=== PATIENT | male | born 1955 | race Caucasian/White ===

== ENCOUNTER 2023-11-11 15:20 | Outpatient (CLI) | payer MEDICARE ==
[2023-11-11 16:00] LABS: #Basophils 0.1 10x3/uL (0.0-0.2); #Eosinphils 0.1 10x3/uL (0.0-0.5); #Monocytes 0.7 10x3/uL (0.0-1.1); #Neutrophils 2.4 10x3/uL (1.5-8.4); %Basophils 0.9 % (0.0-2.0); %Eosinophils 1.8 % (0.0-6.0); %Lymphocytes 41.1 % (18.0-47.0); %Monocytes 12.4 % (0.0-10.0); %Neutrophils 43.6 % (40.0-75.0); Hematocrit 47.9 % (38.8-50.0); Hemoglobin 16.3 g/dL (13.5-17.5); Mean Corpuscular Hemoglobin 31.5 pg (27.0-33.0); Mean Corpuscular Volume 92.5 fl (81.2-95.1); Mean Platelet Volume 10.2 fl (7.4-10.4); Platelet Count 281 10x3/uL (150-450); Red Blood Cell (RBC) Count 5.18 10x6/uL (4.32-5.72); White Blood Cell (WBC) Count 5.5 10x3/uL (3.5-10.5)
[2023-11-11 16:18] LABS: ALT (SGPT) 21 U/L (8-55); AST (SGOT) 23 U/L (5-34); Albumin 4.5 g/dL (3.4-4.8); Alkaline Phosphatase 68 U/L (40-110); Anion Gap 15 mmol/L (10-20); BUN (Urea Nitrogen) 16 mg/dL (8.4-25.7); Bilirubin, Total 0.7 mg/dL (0.2-1.2); Calc. Creatinine Clearance 0 mL/min (70-130); Calcium 9.7 mg/dL (7.8-10.44); Carbon Dioxide 26 mmol/L (23-31); Chloride 102 mmol/L (98-107); Estimated GFR 92; Globulin 2.8 g/dL (2.4-3.5); Glucose 106 mg/dL (80-115); Potassium 4.2 mmol/L (3.5-5.1); Protein, Total 7.3 g/dL (5.8-8.1); Sodium 139 mmol/L (136-145)
== END 2023-11-11 15:21 | disposition home or self-care (01) ==
LOC: LABBT 15:20
PROVIDERS: ATTEND Surgery
DX: Z01.818 Encounter for other preprocedural examination (principal); K40.90 Unilateral inguinal hernia, without obstruction or gangrene, not specified as recurrent
CPT/HCPCS: 80053; 85025; 93005; 93010

== ENCOUNTER 2023-11-12 10:22 | Day surgery (SDC) | payer OTHER, MEDICARE ==
[2023-11-11 15:42] VITALS: BMI 29.8
[2023-11-12] MEDS ORDERED: Scopolamine 1 mg/72 hour Patch ONE (12:02)
[2023-11-12] MEDS ORDERED: Famotidine/PF 20 mg/2ml Vial ONE (12:03)
[2023-11-12] MEDS ORDERED: PROPOFOL 20 ML ONE (12:22)
[2023-11-12] MEDS ORDERED: fentaNYL PF 100 MCG/2 ML SYRINGE ONE (12:22)
[2023-11-12] MEDS ORDERED: Lidocaine 1% PF 5 ML VIAL ONE ×2 (12:25→12:43)
[2023-11-12] MEDS ORDERED: Bupivacaine 0.25% HCL 30 ML VIAL ONE (12:25)
[2023-11-12] MEDS ORDERED: EPINEPHrine 1 MG/ML VIAL ONE (12:25)
[2023-11-12] MEDS ORDERED: CEFAZOLIN 2 GM VIAL ONE (12:30)
[2023-11-12] MEDS ORDERED: Sodium Chloride 0.9% 100 ML ONE (12:30)
[2023-11-12] MEDS ORDERED: NEOSTIGMINE 3 MG/3 ML SYR 3 MG/3 ML SYRINGE ONE ×2 (12:43→13:13)
[2023-11-12] MEDS ORDERED: PROPOFOL 200 MG/20 ML VIAL ONE (12:43)
[2023-11-12] MEDS ORDERED: Ketorolac Tromethamine 30 MG/ML VIAL ONE ×2 (12:43→12:57)
[2023-11-12] MEDS ORDERED: Dexamethasone 20 MG/5 ML VIAL ONE (12:43)
[2023-11-12] MEDS ORDERED: Glycopyrrolate 0.2 MG/ML 5 ML SYRINGE ONE ×2 (12:43→13:13)
[2023-11-12] MEDS ORDERED: Ondansetron PF 4 MG/2 ML Vial ONE ×2 (12:43→13:12)
[2023-11-12] MEDS ORDERED: Rocuronium Bromide 10 MG/ML (10ML VIAL) ONE (12:43)
[2023-11-12] MEDS ORDERED: Dexamethasone 4 mg/ml Vial ONE (12:57)
[2023-11-12] MEDS ORDERED: fentaNYL 50 mcg/mL 1 mL Vial ONE (13:44)
== END 2023-11-12 16:29 | disposition home or self-care (01) ==
LOC: SDC 10:22
PROVIDERS: ATTEND Surgery
PROC: 0YQ50ZZ Repair Right Inguinal Region, Open Approach (ICD-10-PCS; principal; 2023-11-12)
DX: K40.90 Unilateral inguinal hernia, without obstruction or gangrene, not specified as recurrent (principal)
CPT/HCPCS: C1781; J0171; J1100; J1885; J2405; J2704; J3010; J3490; S0020; S0028